=== PATIENT | male | born 1970 | race Two or more races ===

== ENCOUNTER → 2020-10-31 07:34 | Outpatient (BNVA) | payer OTHER, SELFPAY | PROVIDERS: Visit Provider Physician Assistant ==

== ENCOUNTER 2020-12-19 10:39 | Day surgery (SDC) | payer OTHER, SELFPAY ==
--- NOTE | 2020-12-18 10:15 | HO.ANESPROP2 ---
Documented by User: Angie Madsen NP 12/18/20 10:15 HPI - Anesthesia Eval Consult details Narrative: 50yo M for Colonoscopy No blood products PMFSH Active Problems Active Problems: All Active Problems (Updated 10/31/20 @ 08:11 by Jinny Avila PA-C) Colon cancer screening (Acute) Obesity (BMI 30-39.9) (Acute) Depression (Acute) Anxiety (Acute) Insomnia (Acute) Attention deficit disorder (ADD) (Acute) Benign essential hypertension (Acute) Pure hypercholesterolemia (Acute) Patient is Nondenominational (Acute) Fatty liver (Acute) Hypogonadism (Acute) Attention deficit hyperactivity disorder (ADHD) (Acute) Hyperlipidemia (Acute) Hypertension (Acute) Past Medical History Medical History Anxiety Attention deficit disorder (ADD) Benign essential hypertension Depression Fatty liver Hypogonadism Insomnia Obesity (BMI 30-39.9) Patient is Nondenominational Pure hypercholesterolemia Family History Family History Brother Colon polyps Surgical History Surgical History History of appendectomy Social History Social History Household Members Other:: Alcohol intake: former Patient Tobacco Use Status: Never used Tobacco Use of substances other than those prescribed or required for medical reasons: No Are you DNR?: No Advance Directives: No Advance Directives Information Provided: Yes Current occupational status: employed 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 Allergies Allergy/AdvReac Type Severity Reaction Status Date / Time oxycodone [From Percocet] AdvReac Severe vomiting Verified 12/19/20 10:57 acetaminophen [From Percocet] AdvReac vomiting Verified 12/19/20 10:57 Exam Exam Date and Time: December 18, 2020 1015 Assessment and Plan Assessment Anesthesia Assessment: Chart Reviewed Documented by User: Adalberto Chong MD 12/19/20 12:00 PMFSH Past Medical History Medical History Anxiety Attention deficit disorder (ADD) Benign essential hypertension Depression Fatty liver Hypogonadism Insomnia Obesity (BMI 30-39.9) Patient is Nondenominational Pure hypercholesterolemia Family History Family History Brother Colon polyps Family history of problems with anesthesia: No Surgical History Surgical History History of appendectomy History of Problems with Anesthesia: No Social History Social History Household Members Other:: Alcohol intake: former Patient Tobacco Use Status: Never used Tobacco Use of substances other than those prescribed or required for medical reasons: No Are you DNR?: No Advance Directives: No Advance Directives Information Provided: Yes Current occupational status: employed 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 Meds Allergies Allergy/AdvReac Type Severity Reaction Status Date / Time oxycodone [From Percocet] AdvReac Severe vomiting Verified 12/19/20 10:57 acetaminophen [From Percocet] AdvReac vomiting Verified 12/19/20 10:57 Exam Airway Mallampati Class: II TM Dist: >3cm Neck ROM: Full Loose/Missing/Broken Teeth: Yes Assessment and Plan Assessment Anesthesia Assessment: Anesthesia Plan Discussed Final Anesthetic Review Family History of Problems with Anesthesia: No History of Problems with Anesthesia: No NPO: Yes ASA Class: III Final Preanesthetic Review: No Changes in Pt Med Stat, Meds/Allgs Chart Reviewed, Consent Obtained/Reviewed and Anes Risks/Benef Reviewed Patient Risk: Low Procedure Risk: Low Anesthetic Plan Anesthetic Plan: MAC: (No blood products under any circumstances whatsoever) and Agree w/ Assess. and Plan Disposition: Standard PACU
[2020-12-19 11:16] VITALS: BP 150/102; PULSE 75; RESP 18; TEMP 36.7; O2SAT 97; BMI 34.0
[2020-12-19] MEDS: Lactated Ringers 1,000 ML 100 ML IVCONT (11:27)
--- NOTE | 2020-12-19 11:44 | P.HPSUR_ITS ---
Pre-Procedural Eval Section A Date of Service: 12/19/20 Section B Chief Complaint: Screening Relevant Family History (Specify if Yes): No Relevant Social History: None Present Medications: see Short Stay Collaborative assessment Medical History: Significant History (Anxiety Attention deficit disorder (ADD) Benign essential hypertension Depression Fatty liver Hypogonadism Insomnia Obesity (BMI 30-39.9) Patient is Holiness Pure hypercholesterolemia) History of Previous Operations: Relevant previous surgery/procedure and date(s) (appendectomy) Allergies: Allergies Allergy/AdvReac Type Severity Reaction Status Date / Time oxycodone [From Percocet] AdvReac Severe vomiting Verified 12/19/20 10:57 acetaminophen [From Percocet] AdvReac vomiting Verified 12/19/20 10:57 Review of Systems Sugical H&P ROS: Negative: Constitution, Cardiovascular, Respiratory, Neurological, Psychiatric, Hem-Onc, Allergic/Immunologic, Gastrointestinal, Genitourinary, Musculoskeletal, Integumentary, Endocrine and Eyes/Ears/Nose/Throat Exam Surgical H&P Exam: Normal: HEENT, Normal: Heart, Normal: Lungs, Normal: Extremities, Normal: Abdomen, Normal: Skin and Normal: Neurological Plan Diagnosis/Plan: Unchanged I have reviewed the history and physical and performed a pertinent physical examination on my patient. No changes have occurred unless specified.
--- NOTE | 2020-12-19 13:06 | PM.OP ---
Brief Operative Note Date of Service: 12/19/20 Pre-op diagnosis: screening Post-op diagnosis: same Procedure: see op note Surgeon: Alexander Finney MD Anesthesia: MAC Was an Avionics Systems Engineer used for this Procedure?: No Estimated blood loss (mL): 0 Condition: stable Disposition: PACU
--- NOTE | 2020-12-19 13:07 | P.OP_ITS ---
Operative Note Operative Note Date of Service: 12/19/20 Narrative: Operative Information Procedure Description: Colonoscopy COLONOSCOPY Instrument: Olympus variable stiffness adult scope 190L Colonoscopy Monitoring: Vital signs and clinical assessment, continuous EKG monitoring, Pulse oximetry, Carbon Dioxide monitoring and blood pressure monitoring were done throughout the procedure. Colon withdrawal time was 7 minutes. Procedure: The patient was placed in the left lateral decubitis position and pre-procedure medications were administered. After a digital rectal examination of the ano-rectum, the video colonoscope was inserted into the rectum and advanced through the colon to the cecum/TI. The colonoscope was slowly withdrawn in a retrograde panoramic fashion and the colon mucosa was carefully examined including a retroflexed view of the rectum. Findings and interventions are described below. Procedure Difficulty:easy Findings: scattered diverticula thru out colon, more on left side Terminal Ileum-normal Cecum:normal Ascending Colon: normal Transverse Colon -normal Descending Colon:normal Sigmoid Colon: normal Rectum: Retroflexion with medium sized internal hemorrhoids, grade I Anorectum - normal Colon preparation: [place] Bowel Preparation Scale Right colon; 2 Transverse colon: 2 Left colon; 2 (borderline 2, some areas with semi solid material) (0 = Unprepared colon segment with mucosa not seen due to solid stool that cannot be cleared. 1 = Portion of mucosa of the colon segment seen, but other areas of the colon segment not well seen due to staining, residual stool and/or opaque liquid. 2 = Minor amount of residual staining, small fragments of stool and/or opaque liquid, but mucosa of colon segment seen well. 3 = Entire mucosa of colon segment seen well with no residual staining, small fragments of stool or opaque liquid) Impression and Post Procedure Diagnosis: internal hemorrhoids diverticular disease Plan: High fiber diet leaflet Avoid straining at stool, epsom salts and sitz bath, anusol supps or cream Repeat Colonoscopy in 5 years due to left sided prep or earlier if clinically indicated Above findings were reviewed with the patient and relevant handouts were provided if indicated.
[2020-12-19 13:48] VITALS: BP 135/85; PULSE 74; RESP 16; TEMP 36.7; O2SAT 99
[2020-12-19 14:07] VITALS: BP 137/90; PULSE 62; RESP 16; TEMP 36.9; O2SAT 97
== END 2020-12-19 14:30 | disposition home or self-care (01) ==
PROVIDERS: Visit Provider Internal Medicine Gastroenterology
PROC: 0DJD8ZZ Inspection of Lower Intestinal Tract, Via Natural or Artificial Opening Endoscopic (ICD-10-PCS; CPT 45378; principal; 2020-12-19 13:20)
DX: Z12.11 Encounter for screening for malignant neoplasm of colon (principal); K57.30 Diverticulosis of large intestine without perforation or abscess without bleeding; K64.0 First degree hemorrhoids; K76.0 Fatty (change of) liver, not elsewhere classified; I10 Essential (primary) hypertension; F32.9 Major depressive disorder, single episode, unspecified; E66.9 Obesity, unspecified; Z68.35 Body mass index [BMI] 35.0-35.9, adult; Z79.899 Other long term (current) drug therapy
CPT/HCPCS: 45378

== ENCOUNTER → 2021-01-06 14:24 | Outpatient (BNVA) | payer OTHER, SELFPAY | PROVIDERS: Visit Provider Physician Assistant ==

== ENCOUNTER 2022-06-05 10:08 | Outpatient (REF) | payer OTHER, SELFPAY ==
--- NOTE | ~2022-06-05 | XR_ITS ---
EXAMINATION: XR CHEST CLINICAL INFORMATION: R06.02 - Shortness of breath COMPARISON: None TECHNIQUE: Upright sitting AP and 2 lateral views of the chest were obtained for total of 3 views. FINDINGS: The lungs are clear. There is no hyperinflation, infiltrate, or effusion. Heart size normal. Vascularity normal. Costophrenic sulci are clear. The hilar and mediastinal contours and bony structures are unremarkable. XR/XR chest 2V IMPRESSION: Unremarkable examination.
[2022-06-05 10:39] LABS: MANUAL DIFF FLAG NO
[2022-06-05 11:44] LABS: Basophils Percent Auto 0.5 % (0-2); Eosinophils Absolute Auto 0.1 X10*3/uL (0.0-0.4); Hematocrit 45.7 % (42.0-52.0); Hemoglobin 15.8 g/dl (14.0-18.0); Imm Gran Abs Auto 0.02 X10*3/uL (0.00-0.03); Imm Gran Pct Auto 0.3 % (0.0-0.4); Lymphocytes Absolute Auto 1.9 X10*3/uL (1.2-4.9); Lymphocytes Percent Auto 31.2 % (20-40); Mean Corpuscular HGB Conc 34.6 g/dl (31.0-36.0); Mean Corpuscular Hemoglobin 29.5 pg (27.0-33.0); Mean Corpuscular Volume 85.4 fL (80.0-98.0); Mean Platelet Volume 9.4 fL (9.4-12.4); Monocytes Absolute Auto 0.4 X10*3/uL (0.1-1.2); Monocytes Percent Auto 5.9 % (2-11); Neutrophils Absolute Auto 3.7 x10*3/uL (2.0-8.3); Neutrophils Percent Auto 61.1 % (45-73); Platelet Count 359 X10*3/uL (160-400); Red Blood Count 5.35 X10*6/uL (4.60-5.80); Red Cell Distribution Width 12.8 % (11.0-16.0); White Blood Count 6.1 X10*3/uL (4.8-10.8)
[2022-06-05 12:17] LABS: Alanine Aminotransferase 41 U/L (0-40); Albumin Level 4.4 g/dL (3.5-5.0); Alkaline Phosphatase 85 U/L (39-117); Anion Gap 12 (12-20); Aspartate Amino Transferase 22 U/L (5-37); Bilirubin Total 0.7 mg/dL (0.0-1.0); Blood Urea Nitrogen 14 mg/dL (9-16); Calcium 9.3 mg/dL (8.4-10.2); Carbon Dioxide 22 mmol/L (22-29); Chloride 108 mmol/L (96-108); Cholesterol 221 mg/dL; Estimated Glomerular Filt Rate > 60; Glucose Fasting 101 mg/dL (60-99); HDL Cholesterol 46 mg/dL; LDL Cholesterol Calculated 147 mg/dl; Potassium 4.2 mmol/L (3.3-5.1); Sodium 138 mmol/L (135-145); Total Protein 7.3 g/dL (6.5-8.0); Triglycerides 144 mg/dL
[2022-06-05 12:53] LABS: Folate 15.8 ng/mL (> or = 4.0); Vitamin B12 889 pg/mL (200-900); Vitamin D 25-OH Total 20.1 ng/mL (>30)
== END 2022-06-05 10:09 | disposition home or self-care (01) ==
LOC: HO.LAB 10:08
PROVIDERS: Nurse Practitioner Family; PCP Internal Medicine; Visit Provider Internal Medicine
DX: E78.5 Hyperlipidemia, unspecified (principal); R06.02 Shortness of breath; I10 Essential (primary) hypertension; Z79.899 Other long term (current) drug therapy
CPT/HCPCS: 36415; 71046; 80053; 80061; 82306; 82607; 82746; 84443; 85025

== ENCOUNTER 2022-06-19 07:58 | Outpatient (REF) | payer OTHER, SELFPAY ==
--- NOTE | 2022-06-19 13:11 | PFT_ITS ---
INDICATION: Shortness of breath. SPIROMETRY: FEV1 to FVC of 81% with an FEV1 of 4.41 L, which is 99% predicted and FVC of 5.42 L which is 96% predicted. No significant response to bronchodilators noted. Maximum voluntary ventilation 91% predicted. LUNG VOLUMES: Total lung capacity 95% predicted. DIFFUSION CAPACITY: DLCO 95% predicted. COMPARISON: None. INTERPRETATION: No obstructive nor restrictive ventilatory defect identified. No significant response to bronchodilator noted and a normal maximum voluntary ventilation. Lung volumes are within normal limits, except for slight decrease in the expiratory residual volume secondary to an elevated BMI and diffusion capacity is within normal limits. No clear explanation for the patient's symptoms of dyspnea based on his pulmonary function studies. Clinical correlation warranted. MD TRANG Mary/ANDI / [id number]
== END 2022-06-19 07:59 | disposition home or self-care (01) ==
LOC: HO.RESP 07:58
PROVIDERS: PCP Internal Medicine; Visit Provider Nurse Practitioner Family
DX: R06.02 Shortness of breath (principal)
CPT/HCPCS: 94060; 94727; 94729

== ENCOUNTER → 2022-08-07 08:57 | Outpatient (REF) | payer OTHER, SELFPAY ==
--- NOTE | 2022-08-07 09:01 | CA_ITS ---
Acquisition Time: 2022-08-07 09:46:26 Total Exercise Time: 00:09:20 Test Indications: SOB Medications: Protocol: ESTUARDO Max HR: 157 BPM 92% of Pred: 169 BPM Max BP: 160/100 mmHG Max Work Load: 10.4 METS Exercise stress test exercise 9 min 20 sec of Estuardo protocol achieving 92% MPHR, with mild SOB, no chest discomfort or dizziness, without arrythmia, with normotensive response to exercise, without EKG changes. Test reviewed with Dr. Engle. Referred By: Kirstie Jasmine Overread By: LATASHA SYKES
--- NOTE | 2022-08-07 09:01 | ECG_ITS ---
Test Reason : sob Blood Pressure : / mmHG Vent. Rate : 090 BPM Atrial Rate : 090 BPM P-R Int : 138 ms QRS Dur : 088 ms QT Int : 368 ms P-R-T Axes : 053 -27 041 degrees QTc Int : 450 ms Normal sinus rhythm Nonspecific T wave abnormality Abnormal ECG No previous ECGs available Referred By: Kirstie Jasmine Electronically Signed By:Roosevelt Engle
--- NOTE | 2022-08-07 09:01 | CA_ITS ---
Transthoracic Echocardiogram Patient (Last, First, Middle): Juan Camacho, Gender: Male Date of : 1970 Age: 51 Procedure Date: 08/07/2022 Procedure Type: Transthoracic Echocardiogram Location: OP Height: 187. cm Weight: 136.08 kg BSA: 2.57 m2 Heart Rate: 76 bpm BP: 170 / 110 mmHg Ground Wood Supervisor: LISA Referring MD: Kirstie NEIL Symptoms: R06.02 - Shortness of breath Study Quality: Adequate ECG Rhythm: Sinus Conclusions: - Normal left ventricular size and systolic function. There is mildly increased left ventricular wall thickness. The visually estimated ejection fraction is between 55-60%. - The basal inferoseptal segment is hypokinetic. Findings Left Ventricle Normal left ventricular size and systolic function. There is mildly increased left ventricular wall thickness. The visually estimated ejection fraction is between 55-60%. There is evidence of regional wall motion abnormalities. Diastolic function is normal for age. Wall Motion Rest Echo Findings The basal inferoseptal segment is hypokinetic. Right Ventricle Normal right ventricular cavity size and systolic function. Atria The left atrium is normal in size. The right atrium is normal in size. Aortic Valve Normal aortic valve structure and function. Mitral Valve Normal mitral valve structure and function. There is no mitral valve regurgitation. There is no mitral valve stenosis. Pulmonic Valve Normal pulmonic valve structure and function. There is no pulmonic valve regurgitation. Tricuspid Valve Normal tricuspid valve structure and function. Tricuspid regurgitation envelope is inadequate for calculation of right ventricular systolic pressure. Normal right atrial pressure. Great Vessels All visible segments of the aorta are normal in size. The visualized portions of the pulmonary artery and branches are normal. Venous The inferior vena cava is normal in size and collapses greater than 50% with inspiration. Pericardium/Pleural There is no evidence of pericardial effusion. Prior Study Comparison No prior study available for comparison. Measurements 2D Linear Measurements IVSd: 1.37 0.6-0.9/0.6-1.0 cm LVIDd: 4.49 3.9-5.3/4.2-5.9 cm LVIDd Index: 1.75 2.4-3.2/2.2-3.1 cm/m2 LVIDs: 2.74 2.0-3.6 cm LVPWd: 1.16 0.7-1.1 cm LA Diam: 3.90 2.7-3.8/3.0-4.0 cm LAIDs Index: 1.52 1.5-2.3 cm/m2 LV Mass: 265.65 67-162/88-224 g LV Mass Index: 103.36 43-95/49-115 g/m2 LVOT Diam: 2.00 3.0+(-)1.3 cm 2D Systolic Function EF 4C: 51.40 >55% EF 2C: 50.60 >55% EF BiP: 52.50 >55% Mitral Valve MV Pk E: 0.81 MV PK A: 0.77 MV Decel Time: 239.00 E/A: 1.10 E'Lateral: 9.90 E'Medial: 7.40 E/E' Med: 11.00 E/E' Lat: 8.20 PHT: 70.00 MVA PHT: 3.14 Decel Mckinley: 3.41 Aortic Valve AoV Pk Olman: 1.31 AoV Mn Olman: 0.95 AoV VTI: 0.25 AoV Pk Grad: 7.00 Aov Mn Grad: 4.00 OTTONIEL Cont.VTI: 2.62 LVOT LVOT Pk Olman: 1.14 LVOT Mn Olman: 0.74 LVOT VTI: 0.21 LVOT Pk Grad: 5.00 LVOT Mn Grad: 3.00 LVOT Diam: 2.00 LVOT Area: 3.14 Diastolic Function MV Pk E: 0.81 MV Pk A: 0.77 E/A: 1.10 E'Medial: 7.40 E/E' Med: 11.00 E' Laterial: 9.90 E/E' Lat: 8.20 Right Ventricle TAPSE (mm): 24.30 TVS' Olman: 12.10 Tricuspid Valve RA Press: 3.00 Great Vessels Aorta Sinus of Valsalva: 3.50 2.0-3.5 cm Ao Asc: 3.10 2.1-3.4 cm Pulmonary Valve PV Pk Olman: 1.14 Peak PV Grad: 5.00 Updated in Other Vendor System with Status of Final Roosevelt Engle MD electronically signed on 08/08/2022 11:33:43 PM with status of Final
== END ==
LOC: HO.CARD 08:57
PROVIDERS: Visit Provider Nurse Practitioner Family
DX: R06.02 Shortness of breath (principal)
CPT/HCPCS: 93005; 93017; 93306

== ENCOUNTER 2022-11-05 08:31 | Outpatient (AMB) | payer OTHER, SELFPAY ==
[2022-11-05 08:34] VITALS: BP 150/96; PULSE 74; BMI 37.4
--- NOTE | 2022-11-05 08:34 | MHC.OFFVIS ---
Intake Vital Signs 11/05/22 08:34 Height 6 ft 2 in Weight 291 lb 7.218 oz BMI 37.4 BP 150/96 H Blood Pressure Location Lt brachial Position Sitting Pulse 74 Intake Visit Reasons: HOSPITAL LIBRARIAN/ Mitali/Katelynn.David Intake Note: [facility] Medical Laboratory Technician Required: No Accompanied by: Spouse Allergies oxycodone [From Percocet] Adverse Reaction (Severe, Verified 11/05/22 08:36) vomiting acetaminophen [From Percocet] Adverse Reaction (Verified 11/05/22 08:36) vomiting Medication List - Last Reconciled 11/05/22 by Barrington Garduno MD benzonatate 100 mg PO TID PRN lisinopril 10 mg (2 x 5 mg) PO DAILY HPI HPI Comments History of Present Illness Details Juan is here for consultation regarding an abnormal echocardiogram. He has a history of hypertension that does not really seem well controlled. He underwent a recent echocardiogram and that has reported basal inferoseptal hypokinesis. Hence he has been referred here. Patient himself does not really have any specific symptoms. No chest pains or shortness of breath or anything cardiac sounding. No previous history of coronary disease. Otherwise, fairly healthy with no limitations. 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 Cognitive needs: No Hearing needs: No Vision needs: No Review of Systems Const Denies chills, Denies daytime sleepiness, Denies fatigue, Denies fever(s), Denies frequent falls, Denies night sweats, Denies snoring, Denies weakness, Denies weight gain and Denies weight loss Eyes Denies loss of vision ENT Denies dizziness and Denies hearing loss Card Denies chest pain, Denies chest pain with activity, Denies syncope, Denies rapid heart rate, Denies edema, Denies claudication, Denies leg edema, Denies lightheadedness, Denies palpitations, Denies dyspnea, Denies dyspnea on exertion and Denies orthopnea Resp Denies cough, Denies excessive phlegm production, Denies dyspnea, Denies dyspnea on exertion, Denies snoring and Denies wheezing GI Denies abdominal pain, Denies hematochezia, Denies change in bowel habits, Denies change in stool character, Denies heartburn, Denies nausea and Denies vomiting Denies hematuria, Denies dysuria and Denies urinary frequency Musc Denies arthralgias, Denies muscle weakness, Denies numbness and Denies tingling Skin/Breast Denies nail changes and Denies rash Neuro Denies Abnormal speech present, Denies dizziness, Denies syncope, Denies frequent falls, Denies loss of vision, Denies memory loss, Denies numbness, Denies tingling and Denies weakness Psych Denies depression and Denies memory loss Endo Denies fatigue and Denies palpitations Aller/Immun Denies wheezing Physical Exam Vital Signs: Last Vital Signs Pulse 74 11/05/22 08:34 BP 150/96 H 11/05/22 08:34 BMI result Body Mass Index 37.4 Const General: comfortable and no acute distress Orientation/consciousness: patient oriented x3 HEENT Other: Unremarkable Head: Yes normal to inspection Neck Neck: Yes normal visual inspection Chest Chest palpation & inspection: normal inspection of the chest Resp Auscultation: clear to auscultation bilaterally Cardio Palpation: normal PMI Heart sounds: S1 normal heart sound present, S2 normal heart sound present, no gallops, no murmurs and no rubs GI Palpation (GI): Soft to palpation Back/Spine/Pelvis Other: unremarkable Skin General skin exam: no rashes or lesions noted Neuro General: patient oriented x3 Speech: No Abnormal speech present Extrem General: Yes normal to inspection Psych Mental Status: mental status grossly normal Assessment & Plan Assessment & Plan (1) Abnormal echocardiogram: Code(s): R93.1 - Abnormal findings on diagnostic imaging of heart and coronary circulation (2) Benign essential hypertension: Code(s): I10 - Essential (primary) hypertension Plan In the recent EKG, underlying rhythm is sinus at 90/Min with nonspecific ST-T changes. In the echocardiogram, normal LVEF. Basal inferoseptal hypokinesis described. In the stress test, he was able to do 10.4 Mets with no chest discomfort and no EKG evidence of ischemia. With regard to the wall motion abnormality, could also be something false positive as that area is prone to falls readings. The fact that he was able to exercise adequately makes it less likely he has anything significant like obstructive CAD. Any case considering the fact that he is overweight as well as has hypertension we will do a coronary CTA for further evaluation. Orders: Orders CT Cardiac Coronary Angio Today I25.10 - Atherosclerotic heart disease of [place] coronary artery without angina pectoris Basic Metabolic Panel Today I10 - Essential (primary) hypertension Medications: Refilled benzonatate 100 mg PO TID PRN 30 caps 0RF cough R05.9 - Cough, unspecified Coding Level of Care Code New Pt Level 3 (48941) Diagnoses Abnormal echocardiogram R93.1 Benign essential hypertension I10
== END 2022-11-05 08:53 | disposition home or self-care (01) ==
PROVIDERS: Visit Provider Internal Medicine
DX: R93.1 Abnormal findings on diagnostic imaging of heart and coronary circulation (principal); I10 Essential (primary) hypertension
CPT/HCPCS: 99203

== ENCOUNTER → 2022-11-05 08:31 | Outpatient (BNVA) | payer OTHER, SELFPAY | PROVIDERS: Visit Provider Internal Medicine ==

== ENCOUNTER 2023-03-08 10:35 | Outpatient (AMB) | payer OTHER, SELFPAY ==
[2023-03-08 10:36] VITALS: BP 132/90; PULSE 79; O2SAT 99; BMI 37.5
--- NOTE | 2023-03-08 10:36 | MHC.PC.OV ---
Vital Signs 03/08/23 10:36 Height 6 ft 2 in Weight 292 lb BMI 37.5 BP 132/90 H Blood Pressure Location Lt brachial Position Sitting Pulse 79 Pulse Source Pulse Oximeter Pulse Oximetry (%) 99 Oxygen Delivery Method Room Air Intake Visit Reasons: f/u Awake Overnight Monitor Required: No Accompanied by: Self / Same As Patient Allergies oxycodone [From Percocet] Adverse Reaction (Severe, Verified 03/08/23 10:56) vomiting acetaminophen [From Percocet] Adverse Reaction (Verified 03/08/23 10:56) vomiting Medication List - Last Reconciled 03/08/23 by Bi Hobbs MD atomoxetine 40 mg PO DAILY 30 days fluoxetine 20 mg PO DAILY lisinopril 10 mg (2 x 5 mg) PO DAILY lorazepam Take 1/2 to 1 tablet PO daily PRN; 30 days rosuvastatin 20 mg PO DAILY trazodone 150 mg PO BEDTIME PRN 30 days Tobacco use date assessed: 03/08/23 Dental Screening Dental Screen Date: 03/08/23 Did you have a dental visit in the last 12 months?: Yes Did you have a dental problem in the last 6 months where you did not have access to dental care?: No Was dental information given to patient?: Patient has dentist HPI f/u HPI Details Patient comes in today for his follow up visit - he was last seen by me in 2020 but has been seen by midlevels here a few times over the past couple of years Patient states that he currently feels okay although he continues to experience frequent shaking of his hands, sometimes when he is at work Thinks that his hands shaking from be from his nerves as he's had to take his panic medicine (Lorazepam) daily regularly now - needs his Rx refilled He is currently still taking his Fluoxetine 20 mg QD and Atomoxetine 40 mg QD He denies any headaches or dizziness Denies any chest pains, no SOB No nausea/vomiting, no abdominal pain; relates (+) heartburns at times and would like to get a refill as well for his Omeprazole States that the Rx helped him a lot when we prescribed it for him previously No change in bowel habits noted Has no follow up labs done recently [facility] Medical History Vitamin D deficiency GERD (gastroesophageal reflux disease) Shortness of breath Obesity (BMI 30-39.9) Depression Anxiety Insomnia Attention deficit disorder (ADD) Benign essential hypertension Pure hypercholesterolemia Patient is Jehovah's witness Fatty liver Hypogonadism Surgical History History of appendectomy Family History Brother Colon polyps Household Members Other:: Alcohol intake: former Patient Tobacco Use Status: Never used Tobacco e-Cigarette/Vaping Use: Never Used Current occupational status: employed 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 1. Little interest or pleasure in doing things: not at all 2. Feeling down, depressed, or hopeless: not at all 3. Trouble falling or staying asleep, or sleeping too much: not at all 4. Feeling tired or having little energy: not at all 5. Poor appetite or overeating: not at all 6. Feeling bad about yourself - or that you are a failure or have let yourself or your family down: not at all 7. Trouble concentrating on things, such as reading the newspaper or watching television: not at all 8. Moving or speaking so slowly that other people could have noticed. Or the opposite - being so fidgety or restless that you have been moving around a lot more than usual: not at all 9. Thoughts that you would be better off or of hurting yourself in some way: not at all Total score: 0 Depression Screening Interpretation: Negative (he is on Fluoxetine but more for anxiety) Depression Screening Done: Yes 44661 - PHQ-9 Billing: Yes Source: Developed by Drs. Armaan Montelongo, Belinda Aguirre, Alex Rivas and colleagues, with an educational lesia from [employer]. Thrive Questionnaire Date Thrive assessed: 03/08/23 I am a: Patient What is your living situation today?: I have a steady place to live Within the past 12 months, did the food you bought not last and you didn't have the money to get more?: Never true Within the past 12 months, did you worry whether your food would run out before you got money to buy more?: Never true Do you have trouble paying for medicines?: No Do you have trouble getting transportation to medical appointments?: No Do you have trouble paying your heating and electricity bill?: No Do you have trouble taking care of your child, family member or friend?: No Do you have trouble with day-to-day activities such as bathing, preparing meals, shopping, managing finances, etc.?: No Are you currently unemployed and looking for a job?: No Are you interested in more education?: No Please select the resources that you would like help with: None Currently or been in a relationship where the following occur: no concerns reported AUDIT C Alcohol Use Questionnaire (AUDIT-C) 1. How often do you have a drink containing alcohol?: Monthly or less 2. How many drinks containing alcohol do you have on a typical day when you are drinking?: 5 or 6 (only beers) 3. How often do you have six or more drinks on one occasion?: Monthly Total Score: 5 Score Reviewed/Action Taken: Yes SHARON-7 AMB Questionnaire SHARON-7 Date SHARON - 7 assessed: 03/08/23 Feeling nervous, anxious, or on edge: 0 = Not at all Not being able to stop or control worryin = Not at all Worrying too much about different things: 0 = Not at all Trouble relaxin = Not at all Being so restless that it is hard to sit still: 0 = Not at all Becoming easily annoyed or irritable: 0 = Not at all Feeling afraid as if something awful might happen: 0 = Not at all Total SHARON-7 score (0-4 normal; 5-9 mild; 10-14 moderate; 15-21 severe): 0 Source: Developed by Drs. Armaan Montelongo, Belinda Aguirre, Alex Rivas and colleagues, with an educational lesia from [employer]. Review of Systems Const Denies chills, Denies fatigue, Denies fever(s) and Denies headache(s) ENT Denies dysphagia, Denies dizziness, Denies otalgia, Denies headache(s), Denies neck pain, Denies odynophagia and Denies sore throat Card Denies chest pain, Denies palpitations and Denies dyspnea Resp Denies cough and Denies dyspnea GI Denies abdominal pain, Denies constipation, Denies dysphagia, Denies heartburn, Denies diarrhea, Denies nausea, Denies odynophagia and Denies vomiting Denies dysuria, Denies nocturia and Denies urinary frequency Musc Denies neck pain Neuro Denies dizziness, Denies headache(s) and Reports tremor(s) (on and off in hands but thinks these are more due to anxiety) Psych Reports anxiety (increased) and Reports panic attacks (at times - taking Lorazepam helps calm him down) Endo Denies fatigue and Denies palpitations Physical exam (Primary Care) Vital Signs: Last Vital Signs Pulse 79 03/08/23 10:36 BP 132/90 H 03/08/23 10:36 Pulse Ox 99 03/08/23 10:36 Oxygen Delivery Method Room Air 03/08/23 10:36 BMI result Body Mass Index 37.5 Tobacco/Smoking Status: Tobacco use Status Tobacco use date assessed 03/08/23 03/08/23 10:44 Patient Tobacco Use Status Never used Tobacco 03/08/23 10:44 e-Cigarette/Vaping Use Never Used 03/08/23 10:44 PHQ-9: PHQ-9 Score PHQ-9: Total score 0 03/08/23 10:44 Depression Screening Interpretation: Negative (he is on Fluoxetine but more for anxiety) Thrive Assessment: Date of Thrive Assessment Date Thrive assessed 03/08/23 03/08/23 10:44 Currently or been in a relationship where the following occur: no concerns reported Const General: no acute distress and alert HENMT Ears: TM's normal bilaterally and EAC's normal Throat: Yes posterior oropharynx normal and Yes tonsils normal (no TP congestion) Neck Neck: Yes no lymphadenopathy and Yes supple Resp Auscultation: clear to auscultation bilaterally, no rales and no wheezes Cardio Rate: regular rate Rhythm: regular rhythm Heart sounds: no murmurs GI Palpation (GI): Soft to palpation and nontender Auscultation: normal bowel sounds General: Yes no CVA tenderness Back/Spine/Pelvis Back: no CVA tenderness Skin Rashes: no rashes Extrem General: Yes no clubbing, cyanosis or edema Assessment and Plan Assessment & Plan (1) Benign essential hypertension: Code(s): I10 - Essential (primary) hypertension Plan: Reinforced low sodium diet - goal is systolic BP of at least 120 to 130 mm or less Continue Lisinopril 10 mg QD He is also advised that his BP may possibly improve further once his anxiety is better controlled (2) Pure hypercholesterolemia: Code(s): E78.00 - Pure hypercholesterolemia, unspecified Plan: Reinforced low cholesterol diet Continue Rosuvastatin 20 mg QD Is advised that his LDL cholesterol was elevated when he last had his follow up labs done back in May 2022 so he should try to get some labs done again MATT for follow up (3) GERD (gastroesophageal reflux disease): Code(s): K21.9 - Gastro-esophageal reflux disease without esophagitis Qualifiers: Esophagitis presence: without esophagitis Qualified Code(s): K21.9 - Gastro-esophageal reflux disease without esophagitis Plan: Dietary restrictions reinforced Will start him back on Omeprazole 20 mg QD - Rx renewed (4) Vitamin D deficiency: Code(s): E55.9 - Vitamin D deficiency, unspecified Plan: Patient is advised that his Vitamin D level was low on his labs done back in May 2022 Will start him on Vitamin D3 2000 units QD (5) Attention deficit disorder (ADD): Code(s): F98.8 - Other specified behavioral and emotional disorders with onset usually occurring in childhood and adolescence Qualifiers: Hyperactivity presence: unspecified Qualified Code(s): F98.8 - Other specified behavioral and emotional disorders with onset usually occurring in childhood and adolescence Plan: Continue Atomoxetine 40 mg QD He has been following up as well with neuropsychiatry for his ADD (6) Insomnia: Code(s): G47.00 - Insomnia, unspecified Qualifiers: Insomnia type: unspecified Qualified Code(s): G47.00 - Insomnia, unspecified Plan: Sleep hygiene reinforced Continue Trazodone 150 mg Q HS PRN (7) Anxiety: Code(s): F41.9 - Anxiety disorder, unspecified Plan: Will increase his Fluoxetine to 40 mg QD today Continue Lorazepam 1 mg 1/2 to 1 tablet QD PRN - Rx refilled (8) Depression: Code(s): F32.9 - Major depressive disorder, single episode, unspecified Qualifiers: Depression Type: major depressive disorder Major depression recurrence: recurrent Active/Remission status: currently active Major depression episode severity: unspecified Qualified Code(s): F33.9 - Major depressive disorder, recurrent, unspecified Plan: Is on Fluoxetine 20 mg QD but this will be increased to 40 mg QD today to help address his anxiety issues better (9) Obesity (BMI 30-39.9): Code(s): E66.9 - Obesity, unspecified Plan: Reinforced diet/exercise as tolerated/lose weight Plan Follow up in 3 months Orders: Orders Complete Blood Count Auto Diff Today I10 - Essential (primary) hypertension Lipid Panel Today E78.00 - Pure hypercholesterolemia, unspecified Comprehensive Center. Panel Fast Today E78.00 - Pure hypercholesterolemia, unspecified Vitamin D 25-OH Total Today E55.9 - Vitamin D deficiency, unspecified TSH reflex Free T4 Today E78.00 - Pure hypercholesterolemia, unspecified UA CC w/rflx Micro + Cult Today R30.0 - Dysuria Medications: New omeprazole 20 mg PO DAILY 30 days PRN 30 caps 3RF acid reflux cholecalciferol (vitamin D3) 50 mcg PO DAILY 90 days 90 caps 3RF E55.9 - Vitamin D deficiency, unspecified fluoxetine 40 mg PO DAILY 30 days 30 caps 3RF anxiety Refilled lorazepam Take 1/2 to 1 tablet PO daily PRN; 30 days 30 tabs 0RF anxiety Coding Level of Care Code Est Pt Level 4 (03137) Diagnoses Benign essential hypertension I10 Pure hypercholesterolemia E78.00 Gastroesophageal reflux disease without esophagitis K21.9 Esophagitis presence: without esophagitis Vitamin D deficiency E55.9 Attention deficit disorder, unspecified hyperactivity presence F98.8 Hyperactivity presence: unspecified Insomnia, unspecified type G47.00 Insomnia type: unspecified Anxiety F41.9 Episode of recurrent major depressive disorder, unspecified depression episode severity F33.9 Depression Type: major depressive disorder Major depression recurrence: recurrent Active/Remission status: currently active Major depression episode severity: unspecified Obesity (BMI 30-39.9) E66.9
== END 2023-03-08 11:18 | disposition home or self-care (01) ==
PROVIDERS: PCP Internal Medicine; Visit Provider Internal Medicine
DX: I10 Essential (primary) hypertension (principal); E78.00 Pure hypercholesterolemia, unspecified; K21.9 Gastro-esophageal reflux disease without esophagitis; E55.9 Vitamin D deficiency, unspecified; F98.8 Other specified behavioral and emotional disorders with onset usually occurring in childhood and adolescence; G47.00 Insomnia, unspecified; F41.9 Anxiety disorder, unspecified; E66.9 Obesity, unspecified
CPT/HCPCS: 99214

== ENCOUNTER 2023-05-26 16:38 | Outpatient (AMB) | payer OTHER, SELFPAY ==
--- NOTE | 2023-05-26 16:43 | A.OFFPC_ITS ---
Vital Signs 05/26/23 16:47 05/26/23 17:20 Height 6 ft 2 in Weight 305 lb BMI 39.2 BP 166/110 H 170/110 H Blood Pressure Location Lt brachial Lt brachial Position Sitting Sitting Pulse 73 Pulse Source Pulse Oximeter Pulse Oximetry (%) 96 Oxygen Delivery Method Room Air Intake Visit Reasons: Annual Exam [employer] Required: No Accompanied by: Self / Same As Patient Allergies oxycodone [From Percocet] Adverse Reaction (Severe, Verified 05/26/23 19:01) vomiting acetaminophen [From Percocet] Adverse Reaction (Verified 05/26/23 19:01) vomiting Medication List - Last Reconciled 05/26/23 by Bi Hobbs MD atomoxetine 40 mg PO DAILY 30 days cholecalciferol (vitamin D3) 50 mcg PO DAILY 90 days fluoxetine 40 mg PO DAILY 30 days lisinopril 20 mg PO DAILY 90 days lorazepam Take 1/2 to 1 tablet PO daily PRN; 30 days omeprazole 20 mg PO DAILY PRN 90 days rosuvastatin 20 mg PO DAILY 90 days selenium sulfide 2.25% 5 mL topical DAILY PRN trazodone 150 mg PO BEDTIME PRN 30 days Tobacco use date assessed: 05/26/23 Dental Screening Dental Screen Date: 05/26/23 Did you have a dental visit in the last 12 months?: Yes Did you have a dental problem in the last 6 months where you did not have access to dental care?: No Was dental information given to patient?: Patient has dentist HPI Annual Exam HPI Details Patient comes in today for his annual physical examination States that he feels okay He denies any headaches or dizziness Denies any chest pains, no SOB No nausea/vomiting, no abdominal pain No change in bowel habits noted Denies any acute urinary symptoms States that he ran out of his cholesterol medication a couple of months ago and could not get it refilled Also needs all of his Rx refilled, including his prescription dandruff shampoo Was not able to get his previously ordered labs done before his appointment to day as he does not even remember having to do it before his visit Had his screening colonoscopy done back in 12/2020 and is recommended to get a repeat colonoscopy in 5 years (2025) due to inadequate left-sided prep States that his systolic BP has been consistently elevated (often runs between 140 to 160 mm) even when he checks it at home [facility] Medical History Vitamin D deficiency GERD (gastroesophageal reflux disease) Shortness of breath Obesity (BMI 30-39.9) Depression Anxiety Insomnia Attention deficit disorder (ADD) Benign essential hypertension Pure hypercholesterolemia Patient is Alevism Fatty liver Hypogonadism Surgical History Hx of colonoscopy History of appendectomy Family History Brother Colon polyps Social History Household Members Other:: Housing: Apartment Alcohol intake: former Patient Tobacco Use Status: Never used Tobacco e-Cigarette/Vaping Use: Never Used Current occupational status: employed 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 1. Little interest or pleasure in doing things: not at all 2. Feeling down, depressed, or hopeless: not at all 3. Trouble falling or staying asleep, or sleeping too much: not at all 4. Feeling tired or having little energy: not at all 5. Poor appetite or overeating: not at all 6. Feeling bad about yourself - or that you are a failure or have let yourself or your family down: not at all 7. Trouble concentrating on things, such as reading the newspaper or watching television: not at all 8. Moving or speaking so slowly that other people could have noticed. Or the opposite - being so fidgety or restless that you have been moving around a lot more than usual: not at all 9. Thoughts that you would be better off or of hurting yourself in some way: not at all Total score: 0 Depression Screening Interpretation: Negative (he is on Fluoxetine but more for anxiety) Depression Screening Done: Yes 71447 - PHQ-9 Billing: Yes Source: Developed by Drs. Armaan Montelongo, Belinda Aguirre, Alex Rivas and colleagues, with an educational lesia from [employer]. Thrive Questionnaire Date Thrive assessed: 05/26/23 I am a: Patient What is your living situation today?: I have a steady place to live Within the past 12 months, did the food you bought not last and you didn't have the money to get more?: Never true Within the past 12 months, did you worry whether your food would run out before you got money to buy more?: Never true Do you have trouble paying for medicines?: No Do you have trouble getting transportation to medical appointments?: No Do you have trouble paying your heating and electricity bill?: No Do you have trouble taking care of your child, family member or friend?: No Do you have trouble with day-to-day activities such as bathing, preparing meals, shopping, managing finances, etc.?: No Are you currently unemployed and looking for a job?: No Are you interested in more education?: No Please select the resources that you would like help with: None Currently or been in a relationship where the following occur: no concerns reported THRIVE Score: 0 AUDIT C Alcohol Use Questionnaire (AUDIT-C) 1. How often do you have a drink containing alcohol?: Monthly or less 2. How many drinks containing alcohol do you have on a typical day when you are drinking?: 5 or 6 (only beers) 3. How often do you have six or more drinks on one occasion?: Monthly Total Score: 5 Score Reviewed/Action Taken: Yes SHARON-7 AMB Questionnaire SHARON-7 Date SHARON - 7 assessed: 05/26/23 Feeling nervous, anxious, or on edge: 0 = Not at all Not being able to stop or control worryin = Not at all Worrying too much about different things: 0 = Not at all Trouble relaxin = Not at all Being so restless that it is hard to sit still: 0 = Not at all Becoming easily annoyed or irritable: 0 = Not at all Feeling afraid as if something awful might happen: 0 = Not at all Total SHARON-7 score (0-4 normal; 5-9 mild; 10-14 moderate; 15-21 severe): 0 Source: Developed by Drs. Armaan Montelongo, Belinda Aguirre, Alex Rivas and colleagues, with an educational lesia from [employer]. Review of Systems Const Denies chills, Denies fatigue, Denies fever(s), Denies headache(s), Denies malaise and Denies weakness Eyes Denies blurry vision, Denies change in vision, Denies irritation and Denies itchy eyes ENT Denies dysphagia, Denies dizziness, Denies otalgia, Denies headache(s), Denies nasal congestion, Denies neck pain, Denies odynophagia and Denies sore throat Card Denies chest pain, Denies rapid heart rate, Denies irregular heart rhythm, Denies palpitations and Denies dyspnea Resp Denies chest congestion, Denies cough, Denies dyspnea and Denies wheezing GI Denies abdominal pain, Denies bloating, Denies constipation, Denies dysphagia, Denies heartburn, Denies diarrhea, Denies nausea, Denies odynophagia and Denies vomiting Denies hematuria, Denies difficulty urinating, Denies dysuria, Denies urinary frequency and Denies urinary urgency Musc Denies back pain, Denies arthralgias, Denies joint swelling, Denies muscle weakness and Denies neck pain Skin/Breast Denies change in pigmentation, Denies lesions, Denies rash and Denies unusual bruising Neuro Denies dizziness, Denies headache(s), Denies paresthesias and Denies weakness Endo Denies fatigue and Denies palpitations Aller/Immun Denies itchy eyes and Denies wheezing Physical exam (Primary Care) Vital Signs: Last Vital Signs Pulse 73 05/26/23 16:47 BP 170/110 H 05/26/23 17:20 Pulse Ox 96 05/26/23 16:47 Oxygen Delivery Method Room Air 05/26/23 16:47 BMI result Body Mass Index 39.2 Tobacco/Smoking Status: Tobacco use Status Tobacco use date assessed 05/26/23 05/26/23 17:00 Patient Tobacco Use Status Never used Tobacco 05/26/23 16:45 e-Cigarette/Vaping Use Never Used 05/26/23 16:45 PHQ-9: PHQ-9 Score PHQ-9: Total score 0 05/26/23 17:17 Depression Screening Interpretation: Negative (he is on Fluoxetine but more for anxiety) Thrive Assessment: Date of Thrive Assessment Date Thrive assessed 05/26/23 05/26/23 17:00 Currently or been in a relationship where the following occur: no concerns re ported Const General: no acute distress, alert and awake Orientation/consciousness: patient oriented x3 HENMT Head: Yes normocephalic and Yes atraumatic Ears: external ears normal, TM's normal bilaterally and EAC's normal General nose exam: No nasal discharge present Face and sinus: Yes normal facial exam and Yes sinuses nontender Teeth and gingiva: dentition normal Throat: Yes posterior oropharynx normal and Yes tonsils normal (no TP congestion) Eyes Eyelids: Yes eyelids normal Conjunctivae: conjunctivae normal Pupils: Equal, round and reactive pupils present EOM: EOMs intact bilaterally Neck Neck: Yes no lymphadenopathy and Yes supple Thyroid: Thyroid normal Resp Auscultation: clear to auscultation bilaterally, no rales and no wheezes Cardio Rate: regular rate Rhythm: regular rhythm Heart sounds: no murmurs GI Palpation (GI): Soft to palpation, nontender and No hepatosplenomegaly present Auscultation: normal bowel sounds General: Yes no CVA tenderness Back/Spine/Pelvis Back: no CVA tenderness Thoracic/Lumbar Spine: thoracic and lumbar spine normal to inspection Skin Lesions: no lesions Rashes: no rashes Neuro General: patient oriented x3, moves all extremities, no focal motor deficits and CN's II-XI intact bilaterally Cranial nerves: Yes Equal, round and reactive pupils present Cognition (Neuro): normal cognition Gait exam (Neuro): Normal gait present Extrem General: Yes no clubbing, cyanosis or edema Assessment and Plan Assessment & Plan (1) Annual physical exam: Code(s): Z00.00 - Encounter for general adult medical examination without abnormal findings Plan: Check labs He is up-to-date with his colon cancer screening - will be due for repeat colonoscopy in 2025 (2) Benign essential hypertension: Code(s): I10 - Essential (primary) hypertension Plan: Reinforced low sodium diet - goal is systolic BP of at least 120 to 130 mm or less Will increase his Lisinopril from 10 mg to 20 mg QD (3) Pure hypercholesterolemia: Code(s): E78.00 - Pure hypercholesterolemia, unspecified Plan: Reinforced low cholesterol diet Continue Rosuvastatin 20 mg QD - Rx refilled He has reportedly been out of his cholesterol Rx for a couple of months now so his cholesterol levels may be elevated on his current labs (4) GERD (gastroesophageal reflux disease): Code(s): K21.9 - Gastro-esophageal reflux disease without esophagitis Qualifiers: Esophagitis presence: without esophagitis Qualified Code(s): K21.9 - Gastro-esophageal reflux disease without esophagitis Plan: Dietary restrictions reinforced Continue Omeprazole 20 mg QD (5) Vitamin D deficiency: Code(s): E55.9 - Vitamin D deficiency, unspecified Plan: Continue Vitamin D3 2000 units QD Will recheck his Vitamin D level for follow up (6) Seborrhea capitis in adult: Code(s): L21.0 - Seborrhea capitis Plan: Continue Selenium sulfide 2.25% shampoo use as directed PRN - Rx sent (7) Attention deficit disorder (ADD): Code(s): F98.8 - Other specified behavioral and emotional disorders with onset usually occurring in childhood and adolescence Qualifiers: Hyperactivity presence: unspecified Qualified Code(s): F98.8 - Other specified behavioral and emotional disorders with onset usually occurring in childhood and adolescence Plan: Continue Atomoxetine 40 mg QD - Rx refilled He has been following up as well with neuropsychiatry for his ADD (8) Insomnia: Code(s): G47.00 - Insomnia, unspecified Qualifiers: Insomnia type: unspecified Qualified Code(s): G47.00 - Insomnia, unspecified Plan: Sleep hygiene reinforced Continue Trazodone 150 mg Q HS PRN (9) Anxiety: Code(s): F41.9 - Anxiety disorder, unspecified Plan: Continue Fluoxetine 40 mg QD and Lorazepam 1 mg 1/2 to 1 tablet QD PRN - Rx refilled (10) Depression: Code(s): F32.9 - Major depressive disorder, single episode, unspecified Qualifiers: Depression Type: major depressive disorder Major depression recurrence: recurrent Active/Remission status: currently active Major depression episode severity: unspecified Qualified Code(s): F33.9 - Major depressive disorder, recurrent, unspecified Plan: Continue Fluoxetine 40 mg QD (11) Obesity (BMI 30-39.9): Code(s): E66.9 - Obesity, unspecified Plan: Reinforced diet/exercise as tolerated/lose weight Plan Follow up in 3 months Orders: Orders Comprehensive [place]. Panel Fast Today E78.00 - Pure hypercholesterolemia, unspecified TSH reflex Free T4 Today E78.00 - Pure hypercholesterolemia, unspecified, Z00.00 - Encounter for general adult medical examination without abnormal findings Vitamin D 25-OH Total Today E55.9 - Vitamin D deficiency, unspecified, Z00.00 - Encounter for general adult medical examination without abnormal findings Prostate Specific Antigen Today N40.0 - Benign prostatic hyperplasia without lower urinary tract symptoms, Z00.00 - Encounter for general adult medical examination without abnormal findings Complete Blood Count Auto Diff Today D64.9 - Anemia, unspecified Lipid Panel Today E78.00 - Pure hypercholesterolemia, unspecified UA CC w/rflx Micro + Cult Today R30.0 - Dysuria, Z00.00 - Encounter for general adult medical examination without abnormal findings Hemoglobin A1c Today R73.01 - Impaired fasting glucose, Z00.00 - Encounter for general adult medical examination without abnormal findings Comprehensive [place]. Panel Fast 3 Months E78.00 - Pure hypercholesterolemia, unspecified Lipid Panel 3 Months E78.00 - Pure hypercholesterolemia, unspecified Medications: New selenium sulfide 2.25% wet hair then apply , let stand 5 mins then rinse. Repeat. 5 mL topical DAILY PRN 180 mL 3RF dandruff Changed From rosuvastatin 20 mg PO DAILY 30 tabs 5RF To rosuvastatin 20 mg PO DAILY 90 tabs 1RF 90 days From omeprazole 20 mg PO DAILY 30 days PRN 30 caps 3RF acid reflux To omeprazole 20 mg PO DAILY PRN 90 caps 3RF acid reflux 90 days From lisinopril 10 mg (2 x 5 mg) PO DAILY 60 tabs 1RF I10 - Essential (primary) hypertension To lisinopril 20 mg PO DAILY 90 tabs 1RF 90 days I10 - Essential (primary) hypertension Refilled fluoxetine 40 mg PO DAILY 30 caps 3RF anxiety 30 days atomoxetine 40 mg PO DAILY 30 caps 5RF 30 days F98.8 - Other specified behavioral and emotional disorders with onset usually occurring in childhood and adolescence cholecalciferol (vitamin D3) 50 mcg PO DAILY 90 caps 3RF 90 days E55.9 - Vitamin D deficiency, unspecified lorazepam Take 1/2 to 1 tablet PO daily PRN; 30 tabs 0RF anxiety 30 days trazodone 150 mg PO BEDTIME PRN 30 tabs 1RF insomnia 30 days G47.00 - Insomnia, unspecified Coding Level of Care Code Est Pt Prev Care 40-64y(53155) Diagnoses Annual physical exam Z00.00 Benign essential hypertension I10 Pure hypercholesterolemia E78.00 Gastroesophageal reflux disease without esophagitis K21.9 Esophagitis presence: without esophagitis Vitamin D deficiency E55.9 Seborrhea capitis in adult L21.0 Attention deficit disorder, unspecified hyperactivity presence F98.8 Hyperactivity presence: unspecified Insomnia, unspecified type G47.00 Insomnia type: unspecified Anxiety F41.9 Episode of recurrent major depressive disorder, unspecified depression episode severity F33.9 Depression Type: major depressive disorder Major depression recurrence: recurrent Active/Remission status: currently active Major depression episode severity: unspecified Obesity (BMI 30-39.9) E66.9
[2023-05-26 16:47] VITALS: BP 166/110; PULSE 73; O2SAT 96; BMI 39.2
[2023-05-26 17:20] VITALS: BP 170/110
== END 2023-05-26 17:20 | disposition home or self-care (01) ==
PROVIDERS: PCP Internal Medicine; Visit Provider Internal Medicine
DX: Z00.00 Encounter for general adult medical examination without abnormal findings (principal); I10 Essential (primary) hypertension; F33.9 Major depressive disorder, recurrent, unspecified; E78.00 Pure hypercholesterolemia, unspecified; K21.9 Gastro-esophageal reflux disease without esophagitis; E55.9 Vitamin D deficiency, unspecified; L21.0 Seborrhea capitis; F98.8 Other specified behavioral and emotional disorders with onset usually occurring in childhood and adolescence; G47.00 Insomnia, unspecified; F41.9 Anxiety disorder, unspecified; E66.9 Obesity, unspecified
CPT/HCPCS: 99396

== ENCOUNTER 2024-07-12 15:00 | Outpatient (AMB) | payer OTHER, SELFPAY ==
[2024-07-12 15:03] VITALS: BP 150/110; PULSE 78; O2SAT 98; BMI 37.0
--- NOTE | 2024-07-12 15:03 | A.OFFPC_ITS ---
Vital Signs 07/12/24 15:03 Height 6 ft 2 in Weight 288 lb 4 oz BMI 37.0 BP 150/110 H Blood Pressure Location Lt brachial Position Sitting Pulse 78 Pulse Source Pulse Oximeter Pulse Oximetry (%) 98 Oxygen Delivery Method Room Air Intake Visit Reasons: APE Physician Non Invasive Cardiologist Required: No Accompanied by: Self / Same As Patient Allergies oxycodone [From Percocet] Adverse Reaction (Severe, Verified 07/12/24 15:46) vomiting acetaminophen [From Percocet] Adverse Reaction (Verified 07/12/24 15:46) vomiting Medication List - Last Reconciled 07/12/24 by Bi Hobbs MD atomoxetine 40 mg PO DAILY 30 days cholecalciferol (vitamin D3) 50 mcg PO DAILY 90 days fluoxetine 40 mg PO DAILY 30 days lisinopril 20 mg PO DAILY 90 days lorazepam Take 1/2 to 1 tablet PO daily PRN; 30 days omeprazole 20 mg PO DAILY PRN 90 days rosuvastatin 20 mg PO DAILY 90 days selenium sulfide 2.25% 5 mL topical DAILY PRN trazodone 150 mg PO BEDTIME PRN 30 days Tobacco use date assessed: 07/12/24 Dental Screening Dental Screen Date: 07/12/24 Did you have a dental visit in the last 12 months?: Yes Did you have a dental problem in the last 6 months where you did not have access to dental care?: No Was dental information given to patient?: Patient has dentist HPI APE HPI Details Patient comes in today for his annual physical examination States that he feels okay He denies any headaches or dizziness Denies any chest pains, no shortness of breath No nausea/vomiting, no abdominal pain No change in bowel habits noted He denies any acute urinary symptoms He had his screening colonoscopy last done in 2020 and will be due for repeat colonoscopy next year (5 year recall) States that he needs his selenium sulfide shampoo Rx refilled PFSH Medical History (Updated 07/14/24 @ 05:00 by Bi Hobbs MD) Vitamin D deficiency GERD (gastroesophageal reflux disease) Obesity (BMI 30-39.9) Depression Anxiety Insomnia Attention deficit disorder (ADD) Benign essential hypertension Pure hypercholesterolemia Patient is Christian Fatty liver Hypogonadism Surgical History Hx of colonoscopy History of appendectomy Family History Brother Colon polyps Social History Household Members Other:: Housing: Apartment Alcohol intake: former Patient Tobacco Use Status: Never used Tobacco e-Cigarette/Vaping Use: Never Used service: No Current occupational status: employed 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 1. Little interest or pleasure in doing things: not at all 2. Feeling down, depressed, or hopeless: not at all 3. Trouble falling or staying asleep, or sleeping too much: not at all 4. Feeling tired or having little energy: not at all 5. Poor appetite or overeating: not at all 6. Feeling bad about yourself - or that you are a failure or have let yourself or your family down: not at all 7. Trouble concentrating on things, such as reading the newspaper or watching television: not at all 8. Moving or speaking so slowly that other people could have noticed. Or the opposite - being so fidgety or restless that you have been moving around a lot more than usual: not at all 9. Thoughts that you would be better off or of hurting yourself in some way: not at all Total score: 0 Depression Screening Interpretation: Negative (he is on Fluoxetine but more for anxiety) Depression Screening Done: Yes 87473 - PHQ-9 Billing: Yes Source: Developed by Drs. Armaan Montelongo, Belinda Aguirre, Alex Rivas and colleagues, with an educational lesia from [employer]. Thrive Questionnaire Date Thrive assessed: 07/12/24 I am a: Patient What is your living situation today?: I have a steady place to live Within the past 12 months, did the food you bought not last and you didn't have the money to get more?: Never true Within the past 12 months, did you worry whether your food would run out before you got money to buy more?: Never true Do you have trouble paying for medicines?: No Do you have trouble getting transportation to medical appointments?: No Do you have trouble paying your heating and electricity bill?: No Do you have trouble taking care of your child, family member or friend?: No Do you have trouble with day-to-day activities such as bathing, preparing meals, shopping, managing finances, etc.?: No Are you currently unemployed and looking for a job?: No Are you interested in more education?: No Please select the resources that you would like help with: None Currently or been in a relationship where the following occur: No concerns reported THRIVE Score: 0 AUDIT C Alcohol Use Questionnaire (AUDIT-C) 1. How often do you have a drink containing alcohol?: Monthly or less 2. How many drinks containing alcohol do you have on a typical day when you are drinking?: 5 or 6 (only beers) 3. How often do you have six or more drinks on one occasion?: Monthly Total Score: 5 Score Reviewed/Action Taken: Yes SHARON-7 AMB Questionnaire SHARON-7 Date SHARON - 7 assessed: 07/12/24 Feeling nervous, anxious, or on edge: 0 = Not at all Not being able to stop or control worryin = Not at all Worrying too much about different things: 0 = Not at all Trouble relaxin = Not at all Being so restless that it is hard to sit still: 0 = Not at all Becoming easily annoyed or irritable: 0 = Not at all Feeling afraid as if something awful might happen: 0 = Not at all Total SHARON-7 score (0-4 normal; 5-9 mild; 10-14 moderate; 15-21 severe): 0 Source: Developed by Drs. Armaan Montelongo, Belinda Aguirre, Alex Rivas and colleagues, with an educational lesia from [employer]. Review of Systems Const Denies chills, Denies fatigue, Denies fever(s), Denies headache(s), Denies malaise and Denies weakness Eyes Denies blurry vision, Denies change in vision, Denies irritation and Denies itchy eyes ENT Denies dysphagia, Denies dizziness, Denies otalgia, Denies headache(s), Denies nasal congestion, Denies neck pain, Denies odynophagia and Denies sore throat Card Denies chest pain, Denies rapid heart rate, Denies irregular heart rhythm, Denies palpitations and Denies dyspnea Resp Denies chest congestion, Denies cough, Denies dyspnea and Denies wheezing GI Denies abdominal pain, Denies bloating, Denies constipation, Denies dysphagia, Denies heartburn, Denies diarrhea, Denies nausea, Denies odynophagia and Denies vomiting Denies hematuria, Denies difficulty urinating, Denies dysuria, Denies urinary frequency and Denies urinary urgency Musc Denies back pain, Denies arthralgias, Denies joint swelling, Denies muscle weakness and Denies neck pain Skin/Breast Denies change in pigmentation, Denies lesions, Denies rash and Denies unusual bruising Neuro Denies dizziness, Denies headache(s), Denies paresthesias and Denies weakness Endo Denies fatigue and Denies palpitations Aller/Immun Denies itchy eyes and Denies wheezing Physical exam (Primary Care) Vital Signs: Last Vital Signs Pulse 78 07/12/24 15:03 BP 150/110 H 07/12/24 15:03 Pulse Ox 98 07/12/24 15:03 Oxygen Delivery Method Room Air 07/12/24 15:03 BMI result Body Mass Index 37.0 Tobacco/Smoking Status: Tobacco use Status Tobacco use date assessed 07/12/24 07/12/24 15:11 Patient Tobacco Use Status Never used Tobacco 07/12/24 15:11 e-Cigarette/Vaping Use Never Used 07/12/24 15:11 PHQ-9: PHQ-9 Score PHQ-9: Total score 0 07/12/24 15:52 Depression Screening Interpretation: Negative (he is on Fluoxetine but more for anxiety) Thrive Assessment: Date of Thrive Assessment Date Thrive assessed 07/12/24 07/12/24 15:11 Currently or been in a relationship where the following occur: No concerns reported Const General: no acute distress, alert and awake Orientation/consciousness: patient oriented x3 HENMT Head: Yes normocephalic and Yes atraumatic Ears: external ears normal, TM's normal bilaterally and EAC's normal General nose exam: No nasal discharge present Face and sinus: Yes normal facial exam and Yes sinuses nontender Teeth and gingiva: dentition normal Throat: Yes posterior oropharynx normal and Yes tonsils normal (no TP congestion) Eyes Eyelids: Yes eyelids normal Conjunctivae: conjunctivae normal Pupils: Equal, round and reactive pupils present EOM: EOMs intact bilaterally Neck Neck: Yes no lymphadenopathy and Yes supple Thyroid: Thyroid normal Resp Auscultation: clear to auscultation bilaterally, no rales and no wheezes Cardio Rate: regular rate Rhythm: regular rhythm Heart sounds: no murmurs GI Palpation (GI): Soft to palpation, nontender and No hepatosplenomegaly present Auscultation: normal bowel sounds General: Yes no CVA tenderness Back/Spine/Pelvis Back: no CVA tenderness Thoracic/Lumbar Spine: thoracic and lumbar spine normal to inspection Skin Lesions: no lesions Rashes: no rashes Neuro General: patient oriented x3, moves all extremities, no focal motor deficits and CN's II-XI intact bilaterally Cranial nerves: Yes Equal, round and reactive pupils present Cognition (Neuro): normal cognition Gait exam (Neuro): Normal gait present Extrem General: Yes no clubbing, cyanosis or edema Coding Level of Care Code Est Pt Prev Care 40-64y(38766) Diagnoses Annual physical exam Z00.00 Benign essential hypertension I10 Pure hypercholesterolemia E78.00 Gastroesophageal reflux disease without esophagitis K21.9 Esophagitis presence: without esophagitis Vitamin D deficiency E55.9 Seborrhea capitis in adult L21.0 Attention deficit disorder, unspecified hyperactivity presence F98.8 Hyperactivity presence: unspecified Insomnia, unspecified type G47.00 Insomnia type: unspecified Anxiety F41.9 Episode of recurrent major depressive disorder, unspecified depression episode severity F33.9 Depression Type: major depressive disorder Major depression recurrence: recurrent Active/Remission status: currently active Major depression episode severity: unspecified Obesity (BMI 30-39.9) E66.9 Additional Codes PHQ-9 - 38331 - PHQ-9 Billing: Yes ([id number]) Assessment & Plan Assessment & Plan (1) Annual physical exam: Code(s): Z00.00 - Encounter for general adult medical examination without abnormal findings Category: Medical Plan: Check labs He is up-to-date with his colon cancer screening - had his screening colonoscopy last done in 2020 and will be due for repeat colonoscopy next year (5 year recall) (2) Benign essential hypertension: Code(s): I10 - Essential (primary) hypertension Category: Medical Plan: Reinforced low sodium diet - goal is systolic BP of at least 120 to 130 mm or less Continue Lisinopril 20 mg QD Patient had cardiac stress testing done back in 2022 that came out normal (3) Pure hypercholesterolemia: Code(s): E78.00 - Pure hypercholesterolemia, unspecified Category: Medical Plan: Reinforced low cholesterol diet Continue Rosuvastatin 20 mg QD Will follow up the results of his labs and he is advised that we will reach out to him if we need to make any changes with his medications (4) GERD (gastroesophageal reflux disease): Code(s): K21.9 - Gastro-esophageal reflux disease without esophagitis Category: Medical Qualifiers: Esophagitis presence: without esophagitis Qualified Code(s): K21.9 - Gastro-esophageal reflux disease without esophagitis Plan: Dietary restrictions reinforced Continue Omeprazole 20 mg QD (5) Vitamin D deficiency: Code(s): E55.9 - Vitamin D deficiency, unspecified Category: Medical Plan: Continue Vitamin D3 2000 units QD (6) Seborrhea capitis in adult: Code(s): L21.0 - Seborrhea capitis Category: Medical Plan: Continue Selenium sulfide 2.25% shampoo use as directed PRN - Rx refill sent (7) Attention deficit disorder (ADD): Code(s): F98.8 - Other specified behavioral and emotional disorders with onset usually occurring in childhood and adolescence Category: Medical Qualifiers: Hyperactivity presence: unspecified Qualified Code(s): F98.8 - Other specified behavioral and emotional disorders with onset usually occurring in childhood and adolescence Plan: Continue Atomoxetine 40 mg QD Follow up with neuropsychiatry for his ADD as scheduled (8) Insomnia: Code(s): G47.00 - Insomnia, unspecified Category: Medical Qualifiers: Insomnia type: unspecified Qualified Code(s): G47.00 - Insomnia, unspecified Plan: Sleep hygiene reinforced Continue Trazodone 150 mg Q HS PRN (9) Anxiety: Code(s): F41.9 - Anxiety disorder, unspecified Category: Medical Plan: Continue Fluoxetine 40 mg QD and Lorazepam 1 mg 1/2 to 1 tablet QD PRN (10) Depression: Code(s): F32.9 - Major depressive disorder, single episode, unspecified Category: Medical Qualifiers: Depression Type: major depressive disorder Major depression recurrence: recurrent Active/Remission status: currently active Major depression episode severity: unspecified Qualified Code(s): F33.9 - Major depressive disorder, recurrent, unspecified Plan: Continue Fluoxetine 40 mg QD (11) Obesity (BMI 30-39.9): Code(s): E66.9 - Obesity, unspecified Category: Medical Plan: Reinforced diet/exercise as tolerated/lose weight Plan Follow-up in 4 months Orders: Orders Complete Blood Count Auto Diff 07/12/24 D64.9 - Anemia, unspecified, Z00.00 - Encounter for general adult medical examination without abnormal findings Comprehensive [place]. Panel Fast 07/12/24 E78.00 - Pure hypercholesterolemia, unspecified, Z00.00 - Encounter for general adult medical examination without abnormal findings Lipid Panel 07/12/24 E78.00 - Pure hypercholesterolemia, unspecified, Z00.00 - Encounter for general adult medical examination without abnormal findings Testosterone, Free/Total 07/12/24 N52.9 - Male erectile dysfunction, unspecified, R79.89 - Other specified abnormal findings of blood chemistry TSH reflex Free T4 07/12/24 E78.00 - Pure hypercholesterolemia, unspecified, Z00.00 - Encounter for general adult medical examination without abnormal findings UA CC w/rflx Micro + Cult 07/12/24 R30.0 - Dysuria, Z00.00 - Encounter for general adult medical examination without abnormal findings Vitamin D 25-OH Total 07/12/24 E55.9 - Vitamin D deficiency, unspecified, Z00.00 - Encounter for general adult medical examination without abnormal findings Vitamin B12 and Folate 07/12/24 E53.8 - Deficiency of other specified B group vitamins, Z00.00 - Encounter for general adult medical examination without abnormal findings Prostate Specific Antigen 07/12/24 N40.0 - Benign prostatic hyperplasia without lower urinary tract symptoms, Z00.00 - Encounter for general adult medical examination without abnormal findings Medications: Refilled selenium sulfide 2.25% wet hair then apply , let stand 5 mins then rinse. Repeat. 5 mL topical DAILY PRN 180 mL 3RF dandruff
== END 2024-07-12 15:56 | disposition home or self-care (01) ==
LOC: HO.HMCH 15:00
PROVIDERS: PCP Internal Medicine; Visit Provider Internal Medicine
DX: Z00.00 Encounter for general adult medical examination without abnormal findings (principal); I10 Essential (primary) hypertension; E78.00 Pure hypercholesterolemia, unspecified; K21.9 Gastro-esophageal reflux disease without esophagitis; E55.9 Vitamin D deficiency, unspecified; L21.0 Seborrhea capitis; F98.8 Other specified behavioral and emotional disorders with onset usually occurring in childhood and adolescence; G47.00 Insomnia, unspecified; F41.9 Anxiety disorder, unspecified; F33.9 Major depressive disorder, recurrent, unspecified; E66.9 Obesity, unspecified

== ENCOUNTER → 2024-07-12 15:00 | Outpatient (BNVA) | payer OTHER, SELFPAY | PROVIDERS: PCP Internal Medicine; Visit Provider Internal Medicine | DX: Z00.00 Encounter for general adult medical examination without abnormal findings (principal); I10 Essential (primary) hypertension; E78.00 Pure hypercholesterolemia, unspecified; K21.9 Gastro-esophageal reflux disease without esophagitis; E55.9 Vitamin D deficiency, unspecified; L21.0 Seborrhea capitis; F98.8 Other specified behavioral and emotional disorders with onset usually occurring in childhood and adolescence; G47.00 Insomnia, unspecified; F41.9 Anxiety disorder, unspecified; F33.9 Major depressive disorder, recurrent, unspecified; E66.9 Obesity, unspecified; Z68.37 Body mass index [BMI] 37.0-37.9, adult; Z79.899 Other long term (current) drug therapy | CPT/HCPCS: 96127 ==

== ENCOUNTER 2024-12-06 09:06 | Outpatient (AMB) | payer OTHER, SELFPAY ==
[2024-12-06 09:10] VITALS: BP 148/94; PULSE 98; TEMP 36.1; O2SAT 97; BMI 37.3
--- NOTE | 2024-12-06 09:10 | MHC.PC.OV ---
Vital Signs 12/06/24 09:10 12/06/24 09:27 Height 6 ft 2 in Weight 290 lb 4 oz BMI 37.3 BP 148/94 H 150/100 H Blood Pressure Location Lt brachial Lt brachial Position Sitting Sitting Pulse 98 Pulse Source Pulse Oximeter Temp 97.0 F Temp Source Temporal Artery Scan Pulse Oximetry (%) 97 Oxygen Delivery Method Room Air Comment patient has not taken his blood pressure Rx yet this morning Intake Visit Reasons: 4 month f/u Allergies oxycodone (From Percocet) Adverse Reaction (Severe, Verified 12/06/24 09:18) vomiting acetaminophen (From Percocet) Adverse Reaction (Verified 12/06/24 09:18) vomiting Medication List - Last Reconciled 12/06/24 by Bi Hobbs MD atomoxetine 40 mg PO DAILY 30 days cholecalciferol (vitamin D3) 50 mcg PO DAILY 90 days fluoxetine 40 mg PO DAILY 30 days lisinopril 20 mg PO DAILY 90 days lorazepam Take 1/2 to 1 tablet PO daily PRN; 30 days omeprazole 20 mg PO DAILY PRN 90 days rosuvastatin 20 mg PO DAILY 90 days selenium sulfide 2.25% 5 mL topical DAILY PRN trazodone 150 mg PO BEDTIME PRN 30 days Tobacco use date assessed: 12/06/24 Dental Screening Dental Screen Date: 12/06/24 Did you have a dental visit in the last 12 months?: Yes Did you have a dental problem in the last 6 months where you did not have access to dental care?: No Was dental information given to patient?: Patient has dentist HPI 4 month f/u HPI Details Patient comes in today for his follow up visit States that he feels okay Notes that his blood pressure is high right now as he has not yet taken his blood pressure medication this morning - states that he was trying to get to his appointment here on time and was not able to take them yet He denies any headaches or dizziness Denies any chest pains, no shortness of breath No nausea/vomiting, no abdominal pain No change in bowel habits noted Needs his Selenium sulfide shampoo Rx refilled He was not able to get his previously ordered labs done since his last visit here a few months ago - states that he completely forgot about them [facility] History Vitamin D deficiency GERD (gastroesophageal reflux disease) Obesity (BMI 30-39.9) Depression Anxiety Insomnia Attention deficit disorder (ADD) Benign essential hypertension Pure hypercholesterolemia Patient is Mandaeism Fatty liver Hypogonadism Surgical History Hx of colonoscopy History of appendectomy Family History Brother Colon polyps Social History Household Members Other:: Housing: Apartment Alcohol intake: former Patient Tobacco Use Status: Never used Tobacco e-Cigarette/Vaping Use: Never Used service: No Current occupational status: employed 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 1. Little interest or pleasure in doing things: not at all 2. Feeling down, depressed, or hopeless: not at all 3. Trouble falling or staying asleep, or sleeping too much: not at all 4. Feeling tired or having little energy: not at all 5. Poor appetite or overeating: not at all 6. Feeling bad about yourself - or that you are a failure or have let yourself or your family down: not at all 7. Trouble concentrating on things, such as reading the newspaper or watching television: not at all 8. Moving or speaking so slowly that other people could have noticed. Or the opposite - being so fidgety or restless that you have been moving around a lot more than usual: not at all 9. Thoughts that you would be better off or of hurting yourself in some way: not at all Total score: 0 Depression Screening Interpretation: Negative Depression Screening Done: Yes 70950 - PHQ-9 Billing: Yes Source: Developed by Drs. Armaan Montelongo, Belinda Aguirre, Alex Rivas and colleagues, with an educational lesia from [employer]. Thrive Questionnaire Date Thrive assessed: 07/12/24 I am a: Patient What is your living situation today?: I have a steady place to live Within the past 12 months, did the food you bought not last and you didn't have the money to get more?: Never true Within the past 12 months, did you worry whether your food would run out before you got money to buy more?: Never true Do you have trouble paying for medicines?: No Do you have trouble getting transportation to medical appointments?: No Do you have trouble paying your heating and electricity bill?: No Do you have trouble taking care of your child, family member or friend?: No Do you have trouble with day-to-day activities such as bathing, preparing meals, shopping, managing finances, etc.?: No Are you currently unemployed and looking for a job?: Yes Are you interested in more education?: No Please select the resources that you would like help with: None Currently or been in a relationship where the following occur: No concerns reported THRIVE Score: 0 AUDIT C Alcohol Use Questionnaire (AUDIT-C) 1. How often do you have a drink containing alcohol?: 4 or more times a week 2. How many drinks containing alcohol do you have on a typical day when you are drinking?: 5 or 6 3. How often do you have six or more drinks on one occasion?: Weekly Total Score: 9 Score Reviewed/Action Taken: Yes SHARON-7 AMB Questionnaire SHARON-7 Date SHARON - 7 assessed: 07/12/24 Feeling nervous, anxious, or on edge: 0 = Not at all Not being able to stop or control worryin = Not at all Worrying too much about different things: 0 = Not at all Trouble relaxin = Not at all Being so restless that it is hard to sit still: 0 = Not at all Becoming easily annoyed or irritable: 0 = Not at all Feeling afraid as if something awful might happen: 0 = Not at all Total SHARON-7 score (0-4 normal; 5-9 mild; 10-14 moderate; 15-21 severe): 0 Source: Developed by Drs. Armaan Montelongo, Belinda Aguirre, Alex Rivas and colleagues, with an educational lesia from [employer]. Review of Systems Const Denies chills, Denies fatigue, Denies fever(s) and Denies headache(s) ENT Denies dysphagia, Denies dizziness, Denies otalgia, Denies headache(s), Denies neck pain, Denies odynophagia and Denies sore throat Card Denies chest pain, Denies rapid heart rate, Denies irregular heart rhythm, Denies palpitations and Denies dyspnea Resp Denies chest congestion, Denies cough and Denies dyspnea GI Denies abdominal pain, Denies constipation, Denies dysphagia, Denies heartburn, Denies diarrhea, Denies nausea, Denies odynophagia and Denies vomiting Denies difficulty urinating, Denies dysuria and Denies urinary frequency Musc Denies back pain, Denies arthralgias and Denies neck pain Skin/Breast Denies rash Neuro Denies dizziness, Denies headache(s) and Denies paresthesias Endo Denies fatigue and Denies palpitations Physical exam (Primary Care) Vital Signs: Last Vital Signs Temp 97.0 F 12/06/24 09:10 Pulse 98 12/06/24 09:10 BP 148/94 H 12/06/24 09:10 Pulse Ox 97 12/06/24 09:10 Oxygen Delivery Method Room Air 12/06/24 09:10 BMI result Body Mass Index 37.3 Tobacco/Smoking Status: Tobacco use Status Tobacco use date assessed 12/06/24 12/06/24 09:14 Patient Tobacco Use Status Never used Tobacco 12/06/24 09:14 e-Cigarette/Vaping Use Never Used 12/06/24 09:14 PHQ-9: PHQ-9 Score PHQ-9: Total score 0 12/06/24 09:14 Depression Screening Interpretation: Negative Thrive Assessment: Date of Thrive Assessment Date Thrive assessed 07/12/24 12/06/24 09:14 Currently or been in a relationship where the following occur: No concerns reported Const General: no acute distress and alert HENMT Ears: TM's normal bilaterally and EAC's normal Throat: Yes posterior oropharynx normal and Yes tonsils normal (no TP congestion) Neck Neck: Yes no lymphadenopathy and Yes supple Thyroid: Thyroid normal Resp Auscultation: clear to auscultation bilaterally, no rales and no wheezes Cardio Rate: regular rate Rhythm: regular rhythm Heart sounds: no murmurs GI Palpation (GI): Soft to palpation and nontender Auscultation: normal bowel sounds General: Yes no CVA tenderness Back/Spine/Pelvis Back: no CVA tenderness Thoracic/Lumbar Spine: No lumbar spinal tenderness Skin Rashes: no rashes Extrem General: Yes no clubbing, cyanosis or edema Coding Level of Care Code Est Pt Level 4 (02412) Diagnoses Benign essential hypertension I10 Pure hypercholesterolemia E78.00 Gastroesophageal reflux disease without esophagitis K21.9 Esophagitis presence: without esophagitis Vitamin D deficiency E55.9 Seborrhea capitis in adult L21.0 Attention deficit disorder, unspecified hyperactivity presence F98.8 Hyperactivity presence: unspecified Insomnia, unspecified type G47.00 Insomnia type: unspecified Anxiety F41.9 Episode of recurrent major depressive disorder, unspecified depression episode severity F33.9 Depression Type: major depressive disorder Major depression recurrence: recurrent Active/Remission status: currently active Major depression episode severity: unspecified Obesity (BMI 30-39.9) E66.9 Additional Codes PHQ-9 - 63023 - PHQ-9 Billing: Yes ([id number]) Assessment & Plan Assessment & Plan (1) Benign essential hypertension: Code(s): I10 - Essential (primary) hypertension Category: Medical Plan: Reinforced low sodium diet - goal is systolic BP of at least 120 to 130 mm or less Continue Lisinopril 20 mg QD Patient had cardiac stress testing, echocardiogram and coronary CT done done back in 2022 that all came out normal Will also have him follow up again with our nurse navigators to recheck his blood pressure in a few weeks (2) Pure hypercholesterolemia: Code(s): E78.00 - Pure hypercholesterolemia, unspecified Category: Medical Plan: Patient is advised to go and get his labs done MATT as he has not had any follow up labs done since May 2022 Reinforced low cholesterol diet Continue Rosuvastatin 20 mg QD Will recheck his labs and fasting lipids in 4 months for follow up (3) GERD (gastroesophageal reflux disease): Code(s): K21.9 - Gastro-esophageal reflux disease without esophagitis Category: Medical Qualifiers: Esophagitis presence: without esophagitis Qualified Code(s): K21.9 - Gastro-esophageal reflux disease without esophagitis Plan: Dietary restrictions reinforced Continue Omeprazole 20 mg QD (4) Vitamin D deficiency: Code(s): E55.9 - Vitamin D deficiency, unspecified Category: Medical Plan: Continue Vitamin D3 2000 units QD (5) Seborrhea capitis in adult: Code(s): L21.0 - Seborrhea capitis Category: Medical Plan: Continue Selenium sulfide 2.25% shampoo use as directed PRN - Rx refill sent (6) Attention deficit disorder (ADD): Code(s): F98.8 - Other specified behavioral and emotional disorders with onset usually occurring in childhood and adolescence Category: Medical Qualifiers: Hyperactivity presence: unspecified Qualified Code(s): F98.8 - Other specified behavioral and emotional disorders with onset usually occurring in childhood and adolescence Plan: Continue Atomoxetine 40 mg QD Follow up with neuropsychiatry for his ADD as scheduled (7) Insomnia: Code(s): G47.00 - Insomnia, unspecified Category: Medical Qualifiers: Insomnia type: unspecified Qualified Code(s): G47.00 - Insomnia, unspecified Plan: Sleep hygiene reinforced Continue Trazodone 150 mg Q HS PRN (8) Anxiety: Code(s): F41.9 - Anxiety disorder, unspecified Category: Medical Plan: Continue Fluoxetine 40 mg QD and Lorazepam 1 mg 1/2 to 1 tablet QD PRN (9) Depression: Code(s): F32.9 - Major depressive disorder, single episode, unspecified Category: Medical Qualifiers: Depression Type: major depressive disorder Major depression recurrence: recurrent Active/Remission status: currently active Major depression episode severity: unspecified Qualified Code(s): F33.9 - Major depressive disorder, recurrent, unspecified Plan: Continue Fluoxetine 40 mg QD (10) Obesity (BMI 30-39.9): Code(s): E66.9 - Obesity, unspecified Category: Medical Plan: Reinforced diet/exercise as tolerated/lose weight Plan Follow-up in 4 months Orders: Orders Lipid Panel 4 Months E78.00 - Pure hypercholesterolemia, unspecified Comprehensive [place]. Panel Fast 4 Months E78.00 - Pure hypercholesterolemia, unspecified UA CC w/rflx Micro + Cult 4 Months R30.0 - Dysuria Complete Blood Count Auto Diff 4 Months D64.9 - Anemia, unspecified Medications: Refilled selenium sulfide 2.25% wet hair then apply , let stand 5 mins then rinse. Repeat. 5 mL topical DAILY PRN 180 mL 3RF dandruff
[2024-12-06 09:27] VITALS: BP 150/100
--- OUTSIDE RECORDS SUMMARY | 2024-12-06 09:33 | XMS_ITS | Patient Health Record ---
Author Organization [facility] Address [address] [place] [address] Care Team Providers Care Supervisor Beehive Kiln Name Role Phone Vamsi Wagner Primary Care Provider Lauri Dawkins Unavailable [phone] Allergies Allergen (clinical drug ingredient) Drug/Non Drug Allergy documented on EMR Reaction Allergy Type Onset Date Status acetaminophen / oxycodone Percocet vomit Drug Allergy Active Reason For Referral No Information Social History Tobacco Use: Social History Observation Description Date Details (start date - stop date) Never Smoker NA - NA Tobacco Use/Smoking Question Answer Notes Are you a: nonsmoker Additional Findings: Tobacco Non-User Aggressive non-smoker Alcohol Screen Question Answer Notes Did you have a drink containing alcohol in the p ast year? Yes Points 0 Interpretation Negative Tobacco use other than smoking: Question Answer Notes Are you an other tobacco user? No Plan Of Treatment Pending Test Test Name Order Date 83099- Debride <25 sq cm 12/27/2019 [id number]-Wezyrym Benign Lesion 0.6-1.0 cm 0 12/04/2019 Insurance Providers Payer Name Payer Address Payer Phone Subscriber Number Group Number Insured Name Patient Relationship to Insured Coverage Start Date Coverage End Date [facility] [address] [facility] [place] [id number] [phone] [id number] Saravanan Camacho Spouse - patient is the spouse of the insured Medical (General) History Medical History History ICD Code Anxiety Depression High blood pressure Surgical History Surgery Date(Month/Year) cyst removal left arm
== END 2024-12-06 09:33 | disposition home or self-care (01) ==
LOC: HO.HMCH 09:06
PROVIDERS: PCP Internal Medicine; Visit Provider Internal Medicine
DX: I10 Essential (primary) hypertension (principal); E78.00 Pure hypercholesterolemia, unspecified; E66.9 Obesity, unspecified; Z68.37 Body mass index [BMI] 37.0-37.9, adult; K21.9 Gastro-esophageal reflux disease without esophagitis; E55.9 Vitamin D deficiency, unspecified; L21.0 Seborrhea capitis; F98.8 Other specified behavioral and emotional disorders with onset usually occurring in childhood and adolescence; G47.00 Insomnia, unspecified; F41.9 Anxiety disorder, unspecified; F33.9 Major depressive disorder, recurrent, unspecified

== ENCOUNTER → 2024-12-06 09:06 | Outpatient (BNVA) | payer OTHER, SELFPAY | PROVIDERS: PCP Internal Medicine; Visit Provider Internal Medicine | DX: I10 Essential (primary) hypertension (principal); E78.00 Pure hypercholesterolemia, unspecified; K21.9 Gastro-esophageal reflux disease without esophagitis; E55.9 Vitamin D deficiency, unspecified; L21.0 Seborrhea capitis; F98.8 Other specified behavioral and emotional disorders with onset usually occurring in childhood and adolescence; G47.00 Insomnia, unspecified; F41.9 Anxiety disorder, unspecified; F33.9 Major depressive disorder, recurrent, unspecified; R30.0 Dysuria; D64.9 Anemia, unspecified; E66.9 Obesity, unspecified; Z68.37 Body mass index [BMI] 37.0-37.9, adult | CPT/HCPCS: 96127 ==